=== PATIENT | male | born 2000 | race Caucasian/White ===

== ENCOUNTER 2019-02-05 13:01 | Observation (INO) ==
[2019-02-05] MEDS ORDERED: ONDANSETRON 4 MG TAB.RAPDIS PO ONE (13:45)
[2019-02-05 13:58] LABS: Hematocrit 44.8 % (42.0-52.0); Hemoglobin 15.2 gm/dL (13.5-18.0); Mean Cell Volume 87.8 fl (78-100); Mean Corpuscular Hemoglobin 29.8 pg (27-31); Mean Corpuscular Hgb Conc 33.9 g/dl (32-36); Neutrophil # 12.2 K/mm3 (1.3-6.0); Neutrophil % 93.6 % (42-75.0); Platelet Count 192 K/mm3 (150-450)
--- NOTE | 2019-02-05 14:02 | ERNOTE ---
Fever HPI - General Stated Complaint: severe abdominal pain 07/26 Time Seen by Provider: 02/05/19 13:39 Source: patient, family Exam Limitations: no limitations - History of Present Illness Initial Comments: Patient states that he has been having nausea and vomiting for several days, however he did stop yesterday. He is still having some continuing abdominal cramping although he has been starting to drink fluids over the last 12+ hours. He rates the abdominal pain as moderate to severe in intensity. 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 Associated Symptoms: Present: nausea, vomiting Allergies No Known Allergies Allergy (Unverified 02/05/19 13:50) Review of Systems - Review of Systems Constitutional: Present: chills, other - Generalized body aching EENTM: Present: no symptoms reported Respiratory: Present: no symptoms reported Cardiology: Present: no symptoms reported Gastrointestinal/Abdominal: Present: abdominal pain, nausea, vomiting Genitourinary: Present: no symptoms reported Musculoskeletal: Present: no symptoms reported Skin: Present: no symptoms reported Neurological: Present: no symptoms reported Endocrine: Present: no symptoms reported Hematologic/Lymphatic: Present: no symptoms reported All Other Systems: All systems neg except as marked Fever EXAM - Physical Exam General Appearance: Present: WD/WN, moderate distress Eye Exam: bilateral eye: normal inspection, PERRL ENT Exam: Present: dry mucous membranes Neck: Present: non-tender, full range of motion, supple, normal inspection Respiratory: Present: chest non-tender, lungs clear Cardiovascular/Chest: Present: normal peripheral pulses, regular rate, rhythm, no chest tenderness, no edema, no gallop, no JVD, no murmur Gastrointestinal/Abdominal: Present: normal bowel sounds, McBurney Sign, tenderness - Generalized throughout the abdomen Extremity: Present: normal range of motion, non-tender, normal inspection, no pedal edema, no calf tenderness Neurologic: Present: manager state II-XII nml as tested, normal cerebellar test, no motor/sensory deficits, alert, normal mood/affect, oriented x 3 Skin Exam: Present: normal color, warm/dry, no cyanosis Lymphatic: Present: no adenopathy ED Progress - VITAL SIGNS Patient's Vital Signs:: I have reviewed the patient's vital signs. - RESULTS AND ORDERS Patient's Lab Results:: I have reviewed the patient's lab results. - X-Ray X-Ray #1 XRAY: abdomen X-Ray Interpretation: Reviewed by me - CT/ULTRASOUND CT/Ultrasound Narrative: CT of the abdomen and pelvis was reviewed by me Departure - Departure Clinical Impression: Acute appendicitis Qualifiers: Acute appendicitis type: with localized peritonitis Appendicitis gangrene presence: without gangrene Appendicitis perforation presence: without perforation Appendicitis abscess presence: without abscess Qualified Code(s): K35.30 - Acute appendicitis with localized peritonitis, without perforation or gangrene Disposition: Still a patient Condition: Fair
[2019-02-05 14:10] LABS: Albumin * 3.8 gm/dl (3.4-5.0); Anion Gap 16.4 mmol/L (6.8-13.8); BUN/Creatinine Ratio 11.3 (9.0-21.6); Bilirubin, Total 1.8 mg/dL (0.0-1.1); Ca. Corrected For Albumin 9.2 mg/dL (8.4-10.2); Calcium * 9.4 mg/dL (7.9-10.9); Carbon Dioxide 26.6 mmol/L (24-32.6); Total Protein 7.4 gm/dL (6.2-8.2)
[2019-02-05] MEDS ORDERED: METOCLOPRAMIDE HCL 5 MG/ML VIAL IV ONE (14:11)
[2019-02-05] MEDS ORDERED: NORMAL SALINE 1,000 ML IV ONE (14:11)
[2019-02-05] MEDS ORDERED: diphenhydrAMINE HCL 50 MG/ML VIAL IV ONE (14:11)
[2019-02-05 14:13] LABS: Magnesium 1.4 mg/dL (1.2-2.8)
[2019-02-05] MEDS ORDERED: ONDANSETRON HCL/PF 2 MG/ML VIAL IV ONE (15:54)
[2019-02-05] MEDS ORDERED: MORPHINE SULFATE 4 MG/ML SYRG IV ONE (15:54)
[2019-02-05 16:10] LABS: Urine Appearance Clear (CLEAR); Urine Bilirubin Negative (NEGATIVE); Urine Blood 5 /ul (NEGATIVE); Urine Color Yellow; Urine Ketone Negative (NEGATIVE); Urine Specific Gravity 1.005 SP.GR. (1.005-1.030); Urine pH 6.5 pH (5.0-7.0)
[2019-02-05 16:11] LABS: Urine Nitrite Negative (NEGATIVE); Urine Protein Negative (NEGATIVE); Urine Urobilinogen 4 EU/dl (NORMAL)
[2019-02-05 16:13] LABS: Urine Bacteria None Seen; Urine RBC 0-5 /hpf (0-5); Urine WBC None Seen /hpf (0-5)
[2019-02-05] MEDS ORDERED: RINGER'S SOLUTION,LACTATED 1,000 ML IV ONE (16:15)
--- NOTE | 2019-02-05 16:17 | HP ---
Chief Complaint - Chief Complaint Date of Service: 02/05/19 Time of Service: 16:14 Chief Complaint: abd pain History of Present Illness: Farhat is a pleasant 18-year-old gentleman who developed abdominal pain. His pain started on . He has not felt this way before. He has nausea and vomiting. He is otherwise healthy. He works at [employer]. He underwent a CT scan which demonstrated acute appendicitis. Medical History (Last Updated 02/05/19 @ 15:44 by Efrain Contreras RN) No pertinent past medical history Surgical History: Surgical History (Last Updated 02/05/19 @ 15:44 by Efrain Contreras RN) No pertinent past surgical history Family History: Family History (Last Updated 02/05/19 @ 15:45 by Efrain Contreras RN) Mother Diabetes Father Diabetes Mother Appendicitis Social History: Preferred Language Guatemalan Do you have any mandaeism or No cultural preference? No Social History Section defined Review Of Systems (GEN) - Review of Systems Generalized/Overall Review: Present: Weakness, Malaise EENTM: Present: No Symptoms Reported Respiratory: Present: No Symptoms Reported Cardiac: Present: No Symptoms Reported Abdominal: Present: Nausea, Vomiting Genitourinary: Present: No Symptoms Reported Musculoskeletal: Present: No Symptoms Reported Neurological: Present: No Symptoms Reported Skin: Present: No Symptoms Reported Endocrine: Present: [place] Immunizations: IMMUNIZATION HX History of Influenza Vaccine No Hx Pneumococcal Vaccination No Allergies/Adverse Reactions: Allergies Allergy/AdvReac Type Severity Reaction Status Date / Time No Known Allergies Allergy Unverified 02/05/19 13:50 Home Medications: HOME MEDICATIONS NK 02/05/19 [Last Taken Unknown] Exam - Exam Vital Signs: Vital Signs - Last Taken Temp 37.6 C 02/05/19 13:20 Pulse 90 02/05/19 13:20 Resp 14 02/05/19 13:20 BP 115/68 02/05/19 13:20 Constitutional: Present: Alert, Oriented x3, Cooperative, Well developed ENT Exam: Present: hearing grossly normal Neck: Present: supple Breasts: Present: Exam deferred Respiratory: Present: lungs clear, normal breath sounds Cardiovascular/Chest: Present: regular rate, rhythm, no edema Abdomen: Present: Normal bowel sounds, soft, nondistended, tender. Absent: no rebound tenderness, guarding, rigidity /Rectal: Present: Exam deferred Extremity: Present: normal range of motion Skin Exam: Present: normal color Neurologic: Present: manager strategy II-XII nml as tested Appearance: Present: appropriate appearance Eye contact: Present: cooperative, good eye contact, normal speech Thoughts: Present: normal thought pattern Diagnostic Studies: Abnormal Lab Results 02/05/19 02/05/19 02/05/19 Range/Units 13:50 13:50 13:50 WBC 13.0 H (4.0-10.5) K/mm3 Immature Gran % (Auto) 0.50 H (0.001-0.429) % Immature Gran # (Auto) 0.06 H (0.000-0.0310) K/mm3 Neutrophils % 93.6 H (42-75.0) % Lymphocytes % 3.9 L (20-51) % Neutrophils # 12.2 H (1.3-6.0) K/mm3 Lymphocytes # 0.51 L (1.5-3.5) k/mm3 Anion Gap 16.4 H (6.8-13.8) mmol/L Random Glucose 125 H (70-110) mg/dL Total Bilirubin 1.8 H (0.0-1.1) mg/dL Lipase 52 L (73-393) U/L Urine Blood (NEGATIVE) /ul Urine Urobilinogen (NORMAL) EU/dl 02/05/19 Range/Units 15:52 WBC (4.0-10.5) K/mm3 Immature Gran % (Auto) (0.001-0.429) % Immature Gran # (Auto) (0.000-0.0310) K/mm3 Neutrophils % (42-75.0) % Lymphocytes % (20-51) % Neutrophils # (1.3-6.0) K/mm3 Lymphocytes # (1.5-3.5) k/mm3 Anion Gap (6.8-13.8) mmol/L Random Glucose (70-110) mg/dL Total Bilirubin (0.0-1.1) mg/dL Lipase (73-393) U/L Urine Blood 5 H (NEGATIVE) /ul Urine Urobilinogen 4 H (NORMAL) EU/dl Laboratory Results WBC 13.0 K/mm3 (4.0-10.5) H 02/05/19 13:50 RBC 5.10 M/mm3 (4.7-6.0) 02/05/19 13:50 Hgb 15.2 gm/dL (13.5-18.0) 02/05/19 13:50 Hct 44.8 % (42.0-52.0) 02/05/19 13:50 MCV 87.8 fl (78-100) 02/05/19 13:50 MCH 29.8 pg (27-31) 02/05/19 13:50 MCHC 33.9 g/dl (32-36) 02/05/19 13:50 RDW 12.0 % (11.5-14.0) 02/05/19 13:50 Plt Count 192 K/mm3 (150-450) 02/05/19 13:50 MPV 10.0 fl (8-11.3) 02/05/19 13:50 Immature Gran % (Auto) 0.50 % (0.001-0.429) H 02/05/19 13:50 Immature Gran # (Auto) 0.06 K/mm3 (0.000-0.0310) H 02/05/19 13:50 Neutrophils % 93.6 % (42-75.0) H 02/05/19 13:50 Lymphocytes % 3.9 % (20-51) L 02/05/19 13:50 Monocytes % 1.5 % (0.0-9) 02/05/19 13:50 Eosinophils % 0.2 % (0.0-3.0) 02/05/19 13:50 Basophils % 0.3 % (0.0-1.0) 02/05/19 13:50 Nucleated RBC % 0.0 k/mm3 (0-1) 02/05/19 13:50 Neutrophils # 12.2 K/mm3 (1.3-6.0) H 02/05/19 13:50 Lymphocytes # 0.51 k/mm3 (1.5-3.5) L 02/05/19 13:50 Monocytes # 0.2 k/mm3 (0.0-1.0) 02/05/19 13:50 Eosinophils # 0.0 k/mm3 (0.0-0.7) 02/05/19 13:50 Absolute Basophils 0.0 k/mm3 (0.0-0.1) 02/05/19 13:50 Sodium 138 mmol/L (132-142) 02/05/19 13:50 Plasma Sodium 138 mmol/L (130-142) 02/05/19 13:50 Potassium 4.0 mmol/L (3.4-4.6) 02/05/19 13:50 Chloride 99 mmol/L (97-106) 02/05/19 13:50 Carbon Dioxide 26.6 mmol/L (24-32.6) 02/05/19 13:50 Anion Gap 16.4 mmol/L (6.8-13.8) H 02/05/19 13:50 BUN 14 mg/dL (6-23) 02/05/19 13:50 Creatinine 1.24 mg/dL (0.4-1.4) 02/05/19 13:50 Est GFR (Non-Af Amer) 79 mL/min (60-130) 02/05/19 13:50 BUN/Creatinine Ratio 11.3 (9.0-21.6) 02/05/19 13:50 Random Glucose 125 mg/dL (70-110) H 02/05/19 13:50 Calcium 9.4 mg/dL (7.9-10.9) 02/05/19 13:50 Calcium Adj for Albumin 9.2 mg/dL (8.4-10.2) 02/05/19 13:50 Magnesium 1.4 mg/dL (1.2-2.8) 02/05/19 13:50 Total Bilirubin 1.8 mg/dL (0.0-1.1) H 02/05/19 13:50 AST 20 U/L (0-48) 02/05/19 13:50 ALT 30 U/L (19-67) 02/05/19 13:50 Alkaline Phosphatase 55 U/L (50-170) 02/05/19 13:50 Total Protein 7.4 gm/dL (6.2-8.2) 02/05/19 13:50 Albumin 3.8 gm/dl (3.4-5.0) 02/05/19 13:50 Lipase 52 U/L (73-393) L 02/05/19 13:50 Urine Color Yellow 02/05/19 15:52 Urine Appearance Clear (CLEAR) 02/05/19 15:52 Urine pH 6.5 pH (5.0-7.0) 02/05/19 15:52 Ur Specific [place] 1.005 SP.GR. (1.005-1.030) 02/05/19 15:52 Urine Protein Negative mg/dL (NEGATIVE) 02/05/19 15:52 Urine Glucose (UA) Negative mg/dL (NEGATIVE) 02/05/19 15:52 Urine Ketones Negative mg/dL (NEGATIVE) 02/05/19 15:52 Urine Blood 5 /ul (NEGATIVE) H 02/05/19 15:52 Urine Nitrate Negative (NEGATIVE) 02/05/19 15:52 Urine Bilirubin Negative mg/dl (NEGATIVE) 02/05/19 15:52 Urine Urobilinogen 4 EU/dl (NORMAL) H 02/05/19 15:52 Ur Leukocyte Esterase Negative /ul (NEGATIVE) 02/05/19 15:52 Urine RBC 0-5 /hpf (0-5) 02/05/19 15:52 Urine WBC None seen /hpf (0-5) 02/05/19 15:52 Ur Epithelial Cells None seen /hpf (0-5) 02/05/19 15:52 Urine Bacteria None seen (NONE) 02/05/19 15:52 Urine Culture Comments No culture indicated 02/05/19 15:52 Influenza Type A Ag Negative (NEGATIVE) 02/05/19 13:45 Influenza Type B Ag Negative (NEGATIVE) 02/05/19 13:45 Group A Strep Rapid Negative (NEGATIVE) 02/05/19 13:45 Assessment/Plan - Narrative Narrative: Patient will be taken to the operating room for laparoscopic possible open appendectomy. He will be given a dose of antibiotics. Her some benefits of the procedure were discussed with the patient including bleeding and infection. He would like to proceed. We will go to the OR emergently as soon as it is available. - Assessment/Plan (1) Acute appendicitis Problem: Acute Qualifiers: Acute appendicitis type: with localized peritonitis Appendicitis gangrene presence: without gangrene Appendicitis perforation presence: without perforation Appendicitis abscess presence: without abscess Qualified Code(s): K35.30 - Acute appendicitis with localized peritonitis, without perforation or gangrene
--- NOTE | 2019-02-05 16:31 | ANES ---
Anesthesia Pre Procedure Eval Vitals/Labs: Last Vital Signs Temp 38.2 C H 02/05/19 16:08 Pulse 103 H 02/05/19 16:08 Resp 14 02/05/19 16:08 BP 100/67 02/05/19 16:08 Pulse Ox 100 02/05/19 16:08 HOME MEDICATIONS NK 02/05/19 [Last Taken Unknown] Allergies/Adverse Reactions: Allergies Allergy/AdvReac Type Severity Reaction Status Date / Time No Known Allergies Allergy Unverified 02/05/19 13:50 - Planned Procedure Planned Procedure: Lap appy Medication List Reviewed:: Yes Allergies Verified: Yes Medical History (Last Reviewed 02/05/19 @ 16:30 by Souleymane Fernandez CRNA) No pertinent past medical history Surgical History (Last Reviewed 02/05/19 @ 16:30 by Souleymane Fernandez CRNA) No pertinent past surgical history Family History (Last Reviewed 02/05/19 @ 16:30 by Souleymane Fernandez CRNA) Mother Diabetes Father Diabetes Mother Appendicitis - Family Anesthesia History Family History:: no untoward family reactions to anesthesia, no familial bleeding tendencies, no family history of clotting disorders, no family history of premature - Airway/Neck/Teeth Within Normal Limits:: Yes Teeth Condition: intact Mallampatti Score: 2 Thyromental (T-M) distance: > 6 cm Mandibulo Hyoid distance: > 3 cm - Respiratory Respiratory Physical: lungs clear Smoking Status: Former smoker Discussed smoking cessation including day of surgery: No Sleep Apnea currently treated: No Sleep Apnea by current assessment: No Discussed Risks/Treatment of JOY: No - Cardiovascular Tolerate Activity: Good Heart Sounds: S1 & S2, Regular - Anesthesia Assessment and Plan ASA Class: PS, I, E Anesthesia Type Plan: General ET Planned difficult intubation/equipment available: No
[2019-02-05] MEDS ORDERED: CEFOXITIN SODIUM 2 GM in DEXTROSE 5 % IN WATER 100 ML IV ONE ×4 (16:43→17:00)
[2019-02-05] MEDS ORDERED: BUPIVACAINE HCL 50 ML VIAL IJ ONE (17:35)
[2019-02-05] MEDS ORDERED: NALOXONE HCL 0.4 MG/ML VIAL IV PRN (18:00)
[2019-02-05] MEDS ORDERED: ACETAMINOPHEN 325 MG TABLET PO PRN (18:00)
[2019-02-05] MEDS ORDERED: IBUPROFEN 800 MG TABLET PO PRN (18:00)
[2019-02-05] MEDS ORDERED: HYDROmorphone HCL 2 MG/ML VIAL IV PRN (18:00)
[2019-02-05] MEDS ORDERED: PROCHLORPERAZINE EDISYLATE 5 MG/ML VIAL IV PRN (18:00)
[2019-02-05] MEDS ORDERED: diphenhydrAMINE HCL 50 MG/ML VIAL IV PRN (18:00)
--- NOTE | 2019-02-05 18:05 | ANES ---
Post Anesthesia Discharge - Transfer of Care Transfer of Care handoff given to nurse: Yes - Discharge from PACU Discharge from PACU when meets criteria: Yes - Discharge to ASU Discharge to ASU-no complications/pt stable: Yes
--- NOTE | 2019-02-05 18:15 | ANES ---
Post Anesthesia Assessment - Vital Signs Vitals: Last Vital Signs Temp 38.2 C H 02/05/19 16:08 Pulse 103 H 02/05/19 16:08 Resp 14 02/05/19 16:08 BP 100/67 02/05/19 16:08 Pulse Ox 100 02/05/19 16:08 Airway Patency: Normal - Mental Status Level Of Consciousness: Awake - Pain Level Pain Score: 0 - N/V Assessment Nausea/Vomiting Presence: None Dehydration:: No
[2019-02-05] MEDS: POTASSIUM CHLORIDE 20 MEQ in DEXTROSE 5%-0.5 NORMAL SALINE 990 ML IV SCH (19:29)
[2019-02-05] MEDS: HYDROcodone/ACETAMINOPHEN 1 EACH TABLET PO PRN (22:44)
[2019-02-06] MEDS: HYDROcodone/ACETAMINOPHEN 1 EACH TABLET PO PRN ×2 (04:46→10:48)
[2019-02-06] MEDS ORDERED: NORMAL SALINE 1,000 ML IV ONE (05:12)
[2019-02-06] MEDS: POTASSIUM CHLORIDE 20 MEQ in DEXTROSE 5%-0.5 NORMAL SALINE 990 ML IV SCH (07:16)
--- NOTE | 2019-02-06 09:26 | OR ---
Operative Report - Dictated Report Narrative: Date of Service: 02/05/19 Procedure: laparoscopic appendectomy Pre-procedure diagnosis: acute appendicitis Post-procedure diagnosis: gangrenous appendicitis Surgeon: Dr. Camille Haynes Anesthesia: general Indication for procedure: Farhat is a very pleasant 18-year-old gentleman who was found to have acute appendicitis. Description of procedure: After appropriate informed consent was obtained patient was taken to the operating room, placed in the supine position. General anesthesia was achieved. The RN placed a Mccain catheter. The patient was prepped and draped in the usual sterile fashion. A 5 mm periumbilical incision was made, hemostat was used to dissect down to the fascia. A Veress needle was inserted, a saline drop test was performed which was satisfactory. The abdomen was insufflated to 15 mmHg. A 5mm blunt trocar was placed at the umbilicus. The camera was inserted, there was no evidence of a trocar injury. A 12 mm trocar was placed in the left lower quadrant of the abdomen. A 5 mm trocar was placed in the suprapubic region. The patient was placed in a head down, rotated left position, to facilitate exposure. The appendix was identified, it appeared consistent with acute appendicitis, and was gangrenous in nature. A window was made in the mesoappendix. The 45 mm echelon stapler with the white load was placed across the base of the appendix. There was good hemostasis. The echelon 45 mm stapler with a white load was then placed across the mesoappendix. There was good hemostasis. The appendix was removed through an Endo Catch bag. The abdomen was inspected and the staple lines were intact, with good hemostasis. The remainder of the abdomen was inspected and was satisfactory. The 12 mm trocar site was closed with an 0 Vicryl suture using a PMI device. The abdomen was desufflated. Local anesthetic was injected. The incisions were closed with inverted interrupted 4-0 Monocryl sutures. Mastisol and Steri-Strips were applied. The patient tolerated the procedure well and was transported to the PACU in satisfactory condition. Estimated blood loss: minimal Complications: none Specimens to pathology: appendix Disposition: The patient will be admitted to the floor for observation.
--- NOTE | 2019-02-06 09:28 | PN ---
Dictated Progress Note - Date and Time Seen: Date: 02/06/19 Time: 09:27 - Progress Note Narrative: Doing well feels much better than yesterday Vital Signs - Last Taken Temp 37.8 C 02/06/19 08:19 Pulse 103 H 02/06/19 08:19 Resp 16 02/06/19 08:19 BP 122/70 02/06/19 08:19 Pulse Ox 95 02/06/19 08:19 Abnormal/Pending Laboratory Last 24 HRS 02/05/19 02/05/19 02/05/19 15:52 13:50 13:50 WBC Immature Gran % (Auto) Immature Gran # (Auto) Neutrophils % Lymphocytes % Neutrophils # Lymphocytes # Anion Gap 16.4 H Random Glucose 125 H Total Bilirubin 1.8 H Lipase 52 L Urine Blood 5 H Urine Urobilinogen 4 H 02/05/19 13:50 WBC 13.0 H Immature Gran % (Auto) 0.50 H Immature Gran # (Auto) 0.06 H Neutrophils % 93.6 H Lymphocytes % 3.9 L Neutrophils # 12.2 H Lymphocytes # 0.51 L Anion Gap Random Glucose Total Bilirubin Lipase Urine Blood Urine Urobilinogen NAD non labored abd appropriate TTP Imp: POD #1 lap appy Plan: dc home after lunch
--- NOTE | 2019-02-06 09:33 | DS ---
(1) Acute appendicitis Problem: Acute Qualifiers: Acute appendicitis type: with localized peritonitis Appendicitis gangrene presence: without gangrene Appendicitis perforation presence: without perforation Appendicitis abscess presence: without abscess Qualified Code(s): K35.30 - Acute appendicitis with localized peritonitis, without perforation or gangrene Description of Stay: Farhat came into the emergency room and was found to have acute appendicitis. He went to the OR which was uneventful. He is recovering well on the floor. If he tolerates lunch he will be able to discharge. Procedures Performed: see notes below Results and Findings: Lab Pending Results 02/05/19 13:45: Influenza Type A Ag Negative, Influenza Type B Ag Negative 02/05/19 13:45: Group A Strep Rapid Negative 02/05/19 13:50: WBC 13.0 H, RBC 5.10, Hgb 15.2, Hct 44.8, MCV 87.8, MCH 29.8, MCHC 33.9, RDW 12.0, Plt Count 192, MPV 10.0, Immature Gran % (Auto) 0.50 H, Immature Gran # (Auto) 0.06 H, Neutrophils % 93.6 H, Lymphocytes % 3.9 L, Monocytes % 1.5, Eosinophils % 0.2, Basophils % 0.3, Nucleated RBC % 0.0, Neutrophils # 12.2 H, Lymphocytes # 0.51 L, Monocytes # 0.2, Eosinophils # 0.0, Absolute Basophils 0.0 02/05/19 13:50: Sodium 138, Plasma Sodium 138, Potassium 4.0, Chloride 99, Carbon Dioxide 26.6, Anion Gap 16.4 H, BUN 14, Creatinine 1.24, Est GFR (Non-Af Amer) 79, BUN/Creatinine Ratio 11.3, Random Glucose 125 H, Calcium 9.4, Calcium Adj for Albumin 9.2, Total Bilirubin 1.8 H, AST 20, ALT 30, Alkaline Phosphatase 55, Total Protein 7.4, Albumin 3.8 02/05/19 13:50: Magnesium 1.4, Lipase 52 L 02/05/19 15:52: Urine Color Yellow, Urine Appearance Clear, Urine pH 6.5, Ur Specific [place] 1.005, Urine Protein Negative, Urine Glucose (UA) Negative, Urine Ketones Negative, Urine Blood 5 H, Urine Nitrate Negative, Urine Bilirubin Negative, Urine Urobilinogen 4 H, Ur Leukocyte Esterase Negative, Urine RBC 0-5, Urine WBC None seen, Ur Epithelial Cells None seen, Urine Bacteria None seen, Urine Culture Comments No culture indicated Disposition: Home self-care Condition: Fair Discharge Activity: Activity as tolerated Discharge Diet: General/regular food Complete Home Medications List: Complete Home Medication List: HYDROcodone/ACETAMINOPHEN [[place] 5-325] 2 each PO Q6H PRN tablet 02/06/19
--- NOTE | 2019-02-06 13:50 | DS ---
(1) Acute appendicitis Problem: Acute Qualifiers: Acute appendicitis type: with localized peritonitis Appendicitis gangrene presence: without gangrene Appendicitis perforation presence: without perforation Appendicitis abscess presence: without abscess Qualified Code(s): K35.30 - Acute appendicitis with localized peritonitis, without perforation or gangrene Procedures Performed: see notes below Results and Findings: Lab Pending Results 02/05/19 13:45: Influenza Type A Ag Negative, Influenza Type B Ag Negative 02/05/19 13:45: Group A Strep Rapid Negative 02/05/19 13:50: WBC 13.0 H, RBC 5.10, Hgb 15.2, Hct 44.8, MCV 87.8, MCH 29.8, MCHC 33.9, RDW 12.0, Plt Count 192, MPV 10.0, Immature Gran % (Auto) 0.50 H, Immature Gran # (Auto) 0.06 H, Neutrophils % 93.6 H, Lymphocytes % 3.9 L, Monocytes % 1.5, Eosinophils % 0.2, Basophils % 0.3, Nucleated RBC % 0.0, Neutrophils # 12.2 H, Lymphocytes # 0.51 L, Monocytes # 0.2, Eosinophils # 0.0, Absolute Basophils 0.0 02/05/19 13:50: Sodium 138, Plasma Sodium 138, Potassium 4.0, Chloride 99, Carbon Dioxide 26.6, Anion Gap 16.4 H, BUN 14, Creatinine 1.24, Est GFR (Non-Af Amer) 79, BUN/Creatinine Ratio 11.3, Random Glucose 125 H, Calcium 9.4, Calcium Adj for Albumin 9.2, Total Bilirubin 1.8 H, AST 20, ALT 30, Alkaline Phosphatase 55, Total Protein 7.4, Albumin 3.8 02/05/19 13:50: Magnesium 1.4, Lipase 52 L 02/05/19 15:52: Urine Color Yellow, Urine Appearance Clear, Urine pH 6.5, Ur Specific [place] 1.005, Urine Protein Negative, Urine Glucose (UA) Negative, Urine Ketones Negative, Urine Blood 5 H, Urine Nitrate Negative, Urine Bilirubin Negative, Urine Urobilinogen 4 H, Ur Leukocyte Esterase Negative, Urine RBC 0-5, Urine WBC None seen, Ur Epithelial Cells None seen, Urine Bacteria None seen, Urine Culture Comments No culture indicated Disposition: Home self-care Condition: Fair Discharge Activity: Activity as tolerated Discharge Diet: General/regular food Problem Oriented Discharge Instructions to Patient/Family: Laparoscopic Appendectomy, Adult, Care After, [id number] Complete Home Medications List: Complete Home Medication List: HYDROcodone/ACETAMINOPHEN [[place] 5-325] 2 each PO Q6H PRN tablet 02/06/19
[2019-02-06 14:18] VITALS: BP 118/70
== END 2019-02-06 14:50 | disposition home or self-care (01) ==
LOC: ER 13:01 → AMB 15:48 → MS 15:48
PROVIDERS: ADMIT Surgery; ATTEND Surgery
DX: K35.30 Acute appendicitis with localized peritonitis, without perforation or gangrene
CPT/HCPCS: 36415; 74177; 80053; 81001; 83690; 83735; 85025; 87081; 87400; 87430; 87449; 88304; 96361; 96365; 96366; 99285; G0378; J2405